=== PATIENT | female | born 1965 | race Caucasian/White ===

== ENCOUNTER 2021-12-05 17:02 | Emergency (ER) | payer BC, MEDICARE ==
[2021-12-05] MEDS ORDERED: Pantoprazole 80 MG in Sodium Chloride 0.9% 10 ML IVPUSH ONE (17:37)
[2021-12-05 18:18] LABS: CARBON DIOXIDE,CO2 24.4 mmol/L (21.0-32.0); POTASSIUM,K 5.8 mmol/L (3.5-5.1)
[2021-12-05] MEDS ORDERED: Sodium Polystyrene Sulfonate 15 GM/60 ML Susp 60 ML Bot PO ONE (18:56)
== END 2021-12-05 21:00 | disposition left against medical advice (07) ==
LOC: MW.ED 17:02
DX: K92.2 Gastrointestinal hemorrhage, unspecified (principal); Z88.2 Allergy status to sulfonamides; Z88.6 Allergy status to analgesic agent; Z79.899 Other long term (current) drug therapy; Z79.01 Long term (current) use of anticoagulants; Z79.4 Long term (current) use of insulin
CPT/HCPCS: 36415; 36430; 80053; 83735; 84484; 85025; 86850; 86900; 86901; 86920; 93005; 96374; 99285; A9270; C9113; J3490; P9016; 93010; 99284

== ENCOUNTER 2021-12-06 09:02 | Emergency (ER) | payer BC, MEDICARE ==
[2021-12-06] MEDS ORDERED: Insulin Regular, Human 100 Units/ML 10 ML Vial IVPUSH ONE ×2 (09:23→09:48)
[2021-12-06] MEDS ORDERED: 50% Dextrose in Water 50 ML Syringe IVPUSH ONE (09:24)
[2021-12-06] MEDS ORDERED: Calcium Gluconate 10% 1 GM/10 ML SDV IVPUSH ONE (09:24)
[2021-12-06 09:47] LABS: BLOOD UREA NITROGEN,BUN 66 mg/dL (7.0-18.0); CARBON DIOXIDE,CO2 20.4 mmol/L (21.0-32.0); CHLORIDE,CL 103 mmol/L (98-107); GLUCOSE RANDOM 291 mg/dL (74-106); POTASSIUM,K 6.4 mmol/L (3.5-5.1); SODIUM,NA 140 mmol/L (136-145)
== END 2021-12-06 11:10 ==
LOC: MW.ED 09:02
DX: K92.2 Gastrointestinal hemorrhage, unspecified (principal); E87.71 Transfusion associated circulatory overload; E87.5 Hyperkalemia; E11.22 Type 2 diabetes mellitus with diabetic chronic kidney disease; K21.9 Gastro-esophageal reflux disease without esophagitis; Z90.49 Acquired absence of other specified parts of digestive tract; Z79.899 Other long term (current) drug therapy; Z79.01 Long term (current) use of anticoagulants; Z79.4 Long term (current) use of insulin; Z88.2 Allergy status to sulfonamides; Z88.6 Allergy status to analgesic agent; Z20.822 Contact with and (suspected) exposure to COVID-19
CPT/HCPCS: 36415; 71045; 80053; 82803; 82947; 83735; 83880; 84484; 85025; 87635; 93005; 94660; 96374; 96375; 99285; J0610; 93010; 99291; J1815-GY; U0002

== ENCOUNTER 2022-01-19 16:20 | Emergency (ER) | payer BC, MEDICARE ==
[2022-01-19 17:17] LABS: CARBON DIOXIDE,CO2 29.9 mmol/L (21.0-32.0); POTASSIUM,K 3.2 mmol/L (3.5-5.1)
== END 2022-01-19 17:31 | disposition home or self-care (01) ==
LOC: MW.ED 16:20
DX: R55 Syncope and collapse (principal); Z88.2 Allergy status to sulfonamides; K21.9 Gastro-esophageal reflux disease without esophagitis; E11.9 Type 2 diabetes mellitus without complications; Z88.6 Allergy status to analgesic agent; Z79.899 Other long term (current) drug therapy; Z79.01 Long term (current) use of anticoagulants; Z79.4 Long term (current) use of insulin; Z90.49 Acquired absence of other specified parts of digestive tract
CPT/HCPCS: 36415; 80053; 85025; 93005; 99284

== ENCOUNTER 2022-01-27 15:49 | Emergency (ER) | payer BC, MEDICARE ==
[2022-01-27] MEDS ORDERED: Sodium Chloride 0.9% 10 ML Syringe FLUSH PRN (16:15)
[2022-01-27] MEDS ORDERED: Sodium Chloride 0.9% 2.5 ML Syringe FLUSH PRN (16:15)
[2022-01-27 17:45] LABS: CARBON DIOXIDE,CO2 27.5 mmol/L (21.0-32.0); POTASSIUM,K 4.6 mmol/L (3.5-5.1)
== END 2022-01-27 18:17 | disposition home or self-care (01) ==
LOC: MW.ED 15:49
DX: E11.22 Type 2 diabetes mellitus with diabetic chronic kidney disease (principal); N18.9 Chronic kidney disease, unspecified; D63.1 Anemia in chronic kidney disease; Z88.2 Allergy status to sulfonamides; Z88.8 Allergy status to other drugs, medicaments and biological substances; Z99.2 Dependence on renal dialysis; Z95.0 Presence of cardiac pacemaker; Z79.01 Long term (current) use of anticoagulants; Z79.4 Long term (current) use of insulin; Z79.899 Other long term (current) drug therapy
CPT/HCPCS: 36415; 80053; 85025; 86850; 86900; 86901; 99283; 99284

== ENCOUNTER 2022-08-04 06:31 | Day surgery (SDC) | payer BC, MEDICARE ==
[~2022-08-04 06:31] MED LIST: Albuterol 0.083% 2.5 MG/3 ML Neb Soln NEB PRN; HYDROmorphone 1 MG/ML Syringe IVPUSH PRN; Lactated Ringers 1,000 ML IV SCH; Metoclopramide 10 MG/2 ML SDV IVPUSH PRN; Morphine 2 MG/ML SYRINGE IVPUSH PRN; Naloxone 0.4 MG/ML SDV IVPUSH PRN; Ondansetron 4 MG/2 ML SDV IVPUSH PRN; Propofol 200 MG/20 ML SDV ONE; fentaNYL 50 MCG/ML SDV IVPUSH PRN
[2022-08-04] MEDS ORDERED: Dexmedetomidine 200 MCG/2 ML SDV ONE (07:27)
[2022-08-04] MEDS ORDERED: Lidocaine 1% 20 ML MDV ONE (07:28)
[2022-08-04] MEDS ORDERED: Propofol 200 MG/20 ML SDV ONE (07:28)
[2022-08-04] MEDS ORDERED: Bupivacaine 0.5% 30 ML SDV ONE (07:28)
[2022-08-04] MEDS ORDERED: Water For Injection, Sterile 20 ML ONE (07:28)
[2022-08-04] MEDS ORDERED: Sodium Chloride 0.9% 500 ML IV SCH (08:00)
[2022-08-04] MEDS ORDERED: Lactated Ringers 1,000 ML IV SCH (09:00)
== END 2022-08-04 09:42 | disposition home or self-care (01) ==
LOC: MW.SDS 06:31
PROVIDERS: ATTEND Surgery
DX: Z45.2 Encounter for adjustment and management of vascular access device (principal); F17.210 Nicotine dependence, cigarettes, uncomplicated; I10 Essential (primary) hypertension; E78.00 Pure hypercholesterolemia, unspecified; I25.10 Atherosclerotic heart disease of native coronary artery without angina pectoris; K21.9 Gastro-esophageal reflux disease without esophagitis; F41.9 Anxiety disorder, unspecified; E11.40 Type 2 diabetes mellitus with diabetic neuropathy, unspecified; Z88.5 Allergy status to narcotic agent; Z88.2 Allergy status to sulfonamides; Z79.899 Other long term (current) drug therapy; Z95.0 Presence of cardiac pacemaker; Z79.01 Long term (current) use of anticoagulants; Z79.4 Long term (current) use of insulin
CPT/HCPCS: 36589; 82947; J2704; J3490; J7040

== ENCOUNTER 2022-09-29 15:49 | Emergency (ER) | payer BC, MEDICARE ==
[2022-09-29] MEDS ORDERED: Sodium Chloride 0.9% 10 ML Syringe FLUSH PRN (16:41)
[2022-09-29] MEDS ORDERED: Sodium Chloride 0.9% 2.5 ML Syringe FLUSH PRN (16:41)
== END 2022-09-29 21:40 | disposition home or self-care (01) ==
LOC: MW.ED 15:49
DX: I13.0 Hypertensive heart and chronic kidney disease with heart failure and stage 1 through stage 4 chronic kidney disease, or unspecified chronic kidney disease (principal); E11.22 Type 2 diabetes mellitus with diabetic chronic kidney disease; N18.9 Chronic kidney disease, unspecified; I50.9 Heart failure, unspecified; D63.1 Anemia in chronic kidney disease; I48.91 Unspecified atrial fibrillation; I25.10 Atherosclerotic heart disease of native coronary artery without angina pectoris; Z99.2 Dependence on renal dialysis; Z79.01 Long term (current) use of anticoagulants; Z95.0 Presence of cardiac pacemaker; Z88.2 Allergy status to sulfonamides; Z88.8 Allergy status to other drugs, medicaments and biological substances; Z79.4 Long term (current) use of insulin; Z79.899 Other long term (current) drug therapy; Z72.0 Tobacco use
CPT/HCPCS: 36415; 36430; 86850; 86900; 86901; 86920; 99284; J3490; P9016; 99283

== ENCOUNTER 2024-01-22 12:07 | Emergency (ER) | payer BC, MEDICARE ==
[2024-01-22] MEDS: 50% Dextrose in Water 50 ML Syringe ONE (12:37)
[2024-01-22] MEDS: Sodium Chloride 0.9% 1,000 ML IV STA (12:37)
[2024-01-22] MEDS: 50% Dextrose in Water 50 ML Syringe IVPUSH ONE (12:37)
[2024-01-22 12:48] LABS: BASOPHILS ABSOLUTE AUTO 0.02 K/uL (0.00-0.20); BASOPHILS PERCENT AUTO 0.3 % (0.0-1.0); EOSINOPHILS ABSOLUTE AUTO 0.09 K/uL (0.00-0.45); EOSINOPHILS PERCENT AUTO 1.1 % (0.0-6.0); HEMATOCRIT 39.1 % (37.0-47.0); HEMOGLOBIN 13.1 g/dL (12.0-16.0); IMMATURE GRAN ABSOLUTE AUTO 0.03 K/uL (0.00-0.05); IMMATURE GRAN PERCENT AUTO 0.4 % (0.0-0.4); LYMPHOCYTES ABSOLUTE AUTO 0.31 K/uL (1.00-4.80); LYMPHOCYTES PERCENT AUTO 3.9 % (24.0-44.0); MEAN CORPUSCULAR HEMOGLOBIN 31.8 pg (28.0-32.0); MEAN CORPUSCULAR HGB CONC 33.5 g/dL (32.0-36.0); MEAN CORPUSCULAR VOLUME 94.9 fL (83.0-99.0); MEAN PLATELET VOLUME 10.4 fL (9.4-12.3); MONOCYTES ABSOLUTE AUTO 0.49 K/uL (0.00-0.80); MONOCYTES PERCENT AUTO 6.2 % (0.0-8.0); NEUTROPHILS ABSOLUTE AUTO 6.94 K/uL (1.80-7.70); NEUTROPHILS PERCENT AUTO 88.1 % (41.0-71.0); PLATELET COUNT,PLT 126 K/uL (150-400); RED BLOOD CELL COUNT 4.12 M/uL (4.10-5.30); WHITE BLOOD CELL COUNT,WBC 7.88 K/uL (3.9-11.3)
[2024-01-22 13:17] LABS: A/G RATIO 0.7 (0.9-1.6); ALBUMIN 3.3 g/dL (3.4-5.0); BILIRUBIN TOTAL 0.6 mg/dL (0.2-1.0); CALCIUM 8.6 mg/dL (8.5-10.1); CARBON DIOXIDE,CO2 32.7 mmol/L (21.0-32.0); CREATININE 2.8 mg/dL (0.6-1.0); EST CRCL DRUG DOSING (CG) 17.67 mL/min
[2024-01-22] MEDS: Heparin Sodium/0.45% NaCl 500 ML IV SCH (14:01)
[2024-01-22] MEDS: Heparin Sodium 5,000 Units/ML Vial IVPUSH ONE (14:01)
[2024-01-22 14:05] LABS: LACTIC ACID 1.5 mmol/L (0.4-2.0)
[2024-01-22 14:09] LABS: INR 1.02 (0.86-1.11); PTT,PARTIAL THROMBOPLSTIN TIME 30.3 SEC (23.9-30.7)
== END 2024-01-22 15:45 ==
LOC: MW.ED 12:07
DX: E11.641 Type 2 diabetes mellitus with hypoglycemia with coma (principal); I99.8 Other disorder of circulatory system; I13.0 Hypertensive heart and chronic kidney disease with heart failure and stage 1 through stage 4 chronic kidney disease, or unspecified chronic kidney disease; N18.9 Chronic kidney disease, unspecified; I50.9 Heart failure, unspecified; E11.22 Type 2 diabetes mellitus with diabetic chronic kidney disease; I25.10 Atherosclerotic heart disease of native coronary artery without angina pectoris; Z79.899 Other long term (current) drug therapy; Z79.4 Long term (current) use of insulin; Z88.2 Allergy status to sulfonamides; Z88.8 Allergy status to other drugs, medicaments and biological substances; Z75.8 Other problems related to medical facilities and other health care
CPT/HCPCS: 36415; 71045; 80053; 82947; 83605; 84484; 85025; 85610; 85730; 87040; 93005; 96361; 96365; 96366; 96375; 99285; J1644; J7030; 93010; J3490

== ENCOUNTER 2024-05-23 18:04 | Emergency (ER) | payer BC, MEDICARE ==
[2024-05-23] MEDS ORDERED: Sodium Chloride 0.9% 10 ML Syringe FLUSH PRN (18:57)
[2024-05-23] MEDS: Pantoprazole 80 MG in Sodium Chloride 0.9% 10 ML IVPUSH ONE (19:31)
[2024-05-23 19:36] LABS: BASOPHILS ABSOLUTE AUTO 0.06 K/uL (0.00-0.20); BASOPHILS PERCENT AUTO 0.7 % (0.0-1.0); EOSINOPHILS ABSOLUTE AUTO 0.11 K/uL (0.00-0.45); EOSINOPHILS PERCENT AUTO 1.3 % (0.0-6.0); HEMATOCRIT 21.4 % (37.0-47.0); HEMOGLOBIN 6.6 g/dL (12.0-16.0); IMMATURE GRAN ABSOLUTE AUTO 0.08 K/uL (0.00-0.05); IMMATURE GRAN PERCENT AUTO 0.9 % (0.0-0.4); LYMPHOCYTES ABSOLUTE AUTO 1.33 K/uL (1.00-4.80); LYMPHOCYTES PERCENT AUTO 15.5 % (24.0-44.0); MEAN CORPUSCULAR HGB CONC 30.8 g/dL (32.0-36.0); MEAN PLATELET VOLUME 10.5 fL (9.4-12.3); MONOCYTES ABSOLUTE AUTO 0.74 K/uL (0.00-0.80); MONOCYTES PERCENT AUTO 8.6 % (0.0-8.0); NEUTROPHILS ABSOLUTE AUTO 6.27 K/uL (1.80-7.70); NRBC ABSOLUTE 0.04 K/uL (0.00-0.02); NRBC PERCENT 0.5 /100WBC (0.0-0.2); PLATELET COUNT,PLT 158 K/uL (150-400); WHITE BLOOD CELL COUNT,WBC 8.59 K/uL (3.9-11.3)
[2024-05-23 19:45] LABS: INR 1.24 (0.86-1.11)
[2024-05-23 19:58] LABS: A/G RATIO 0.9 (0.9-1.6); ALBUMIN 3.1 g/dL (3.4-5.0); BILIRUBIN TOTAL 0.4 mg/dL (0.2-1.0); C-REACTIVE PROTEIN 0.46 mg/dL (<0.3); CALCIUM 8.6 mg/dL (8.5-10.1); CARBON DIOXIDE,CO2 24.8 mmol/L (21.0-32.0); CREATININE 4.7 mg/dL (0.6-1.0); EST CRCL DRUG DOSING (CG) 10.07 mL/min; PROTEIN TOTAL,TP 6.6 g/dL (6.4-8.2)
[2024-05-23 20:04] LABS: PERCENT FE SATURATION 90.16 % (20-55)
== END 2024-05-23 23:00 ==
LOC: MW.ED 18:04
DX: I21.19 ST elevation (STEMI) myocardial infarction involving other coronary artery of inferior wall (principal); K92.2 Gastrointestinal hemorrhage, unspecified; K92.1 Melena; D62 Acute posthemorrhagic anemia; I25.10 Atherosclerotic heart disease of native coronary artery without angina pectoris; I12.0 Hypertensive chronic kidney disease with stage 5 chronic kidney disease or end stage renal disease; N18.6 End stage renal disease; E78.00 Pure hypercholesterolemia, unspecified; E11.22 Type 2 diabetes mellitus with diabetic chronic kidney disease; Z90.49 Acquired absence of other specified parts of digestive tract; Z95.5 Presence of coronary angioplasty implant and graft; Z88.2 Allergy status to sulfonamides; Z88.5 Allergy status to narcotic agent; Z79.4 Long term (current) use of insulin; Z79.01 Long term (current) use of anticoagulants; Z79.899 Other long term (current) drug therapy; Z99.2 Dependence on renal dialysis
CPT/HCPCS: 36415; 36430; 71250; 74176; 80053; 83550; 83605; 83880; 84484; 85025; 85610; 85652; 85730; 86140; 93005; 96374; 99285; J2470; J3490; P9016; 86850; 86900; 86901; 86920